=== PATIENT | female | born 1945 | race Caucasian/White ===

== ENCOUNTER 2017-07-21 13:48 | Emergency (ER) | payer MEDICARE, BC ==
[2017-07-21] MEDS ORDERED: Acetaminophen/oxyCODONE 325-5 MG Tab PO ONE (14:37)
--- NOTE | 2017-07-21 16:34 | CR ---
Right elbow: 4 views of the right elbow were obtained. Elevated fat pads are seen compatible with joint effusion. There is slight cortical irregularity involving the lateral epicondyle suspicious nondisplaced fracture which may extend into the intercondylar notch of the distal humerus. osteopenic. No additional bony abnormality is seen. Impression: 1. Possible nondisplaced fracture involving the lateral epicondyle extending into the intercondylar notch of the distal humerus. Follow-up exam would confirm in 10 to 14 days. 2. Joint effusion. Diagnostic code #3
--- NOTE | 2017-07-21 16:37 | CR ---
Right wrist: 4 views of the right wrist were obtained. No fracture, dislocation or other bony abnormality is seen. Impression: 1. No abnormality is seen on right wrist exam. Diagnostic code #1
--- NOTE | 2017-07-21 16:37 | CR ---
Left hand: 4 views of the left hand were obtained. Comparison: No previous study. Mild joint space narrowing is scattered within the DIP and PIP joints. Findings most severe within the fourth finger. Bony structures are osteopenic. No acute fracture, dislocation or other bony abnormality is seen. Impression: 1. Mild degenerative change. 2. Nothing acute is appreciated on left hand study. Diagnostic code #2
--- NOTE | 2017-07-21 16:53 | EDM.PDOC ---
ED HPI GENERAL MEDICAL PROBLEM - General Chief Complaint: Upper Extremity Injury/Pain Stated Complaint: RIGHT ARM INJURY Time Seen by Provider: 07/21/17 14:25 Source of Information: Reports: Patient History Limitations: Reports: No Limitations - History of Present Illness INITIAL COMMENTS - FREE TEXT/NARRATIVE: 71-year-old female presents for evaluation and treatment of an injury to the right arm. Patient reports that she slipped on some ice. This occurred prior to arrival in the ER. She believes that she fell on her arm. Not stretch out her hand. She is currently complaining of pain greatest to the right elbow with radiation into the right forearm. No numbness or tingling in the arm. Reports decreased range of motion to the arm. Patient denies any head trauma. Patient is also complaining of pain to the left hand thumb and first finger. Patient is visiting [place] from [place] for the next month. Location: Reports: Upper Extremity, Right Right Arm Pain Score (Numeric/FACES): 9 - Related Data Allergies Allergy/AdvReac Type Severity Reaction Status Date / Time No Known Allergies Allergy Verified 07/21/17 13:54 Home Meds: Home Meds Benazepril [Lotensin] 5 mg PO DAILY 07/21/17 [History] Bisoprolol Fumarate/HCTZ [Ziac 10-6.25 MG] 1 tab PO DAILY 07/21/17 [History] Simvastatin 40 mg PO DAILY 07/21/17 [History] amLODIPine Besylate [Amlodipine Besylate] 5 mg PO DAILY 07/21/17 [History] Past Medical History HEENT History: Reports: Impaired Vision Cardiovascular History: Reports: High Cholesterol [employer] History: Reports: Other (See Below) Other OB/BYN History: cancer Oncologic (Cancer) History: Reports: Uterine - Past Surgical History HEENT Surgical History: Reports: Tonsillectomy Social & Family History - Family History Family Medical History: Noncontributory - Tobacco Use Smoking Status *Q: Never Smoker - Caffeine Use Caffeine Use: Reports: Tea - Recreational Drug Use Recreational Drug Use: No Review of Systems - Review of Systems Review Of Systems: See Below Musculoskeletal: Reports: Arm Pain (right arm), Hand Pain (left). Denies: Shoulder Pain Neurological: Denies: Headache, Syncope ED EXAM, GENERAL - Physical Exam Exam: See Below Exam Limited By: No Limitations General Appearance: Alert, WD/WN, Mild Distress Eye Exam: Bilateral Eye: Normal Inspection Respiratory/Chest: No Respiratory Distress, Lungs Clear, Normal Breath Sounds Cardiovascular: Normal Peripheral Pulses, Regular Rate, Rhythm, No Murmur Peripheral Pulses: 2+: Radial (L), Radial (R) Extremities: Normal Inspection (no obvious deformity to the right arm), Joint Swelling (left hand 1st metacarpal), Limited Range of Motion (right elbow, unable to supinate, pronate, felx or extend due to pain), Other (minor discomfort to the left distal humerus with palpation; no snuff box tenderness left or right) Neurological: Alert, Oriented, Normal Cognition Psychiatric: Normal Affect, Normal Mood Skin Exam: Warm, Dry, Normal Color, Ecchymosis (left hand first metacarpal) Course - Vital Signs Last Recorded V/S: Last Vital Signs Temp 36.2 C 07/21/17 13:59 Pulse 72 07/21/17 13:59 Resp 18 07/21/17 13:59 BP 186/85 H 07/21/17 13:59 Pulse Ox 98 07/21/17 13:59 - Orders/Labs/Meds Meds: Medications Discontinued Medications Generic Name Dose Route Start Last Admin Trade Name Freq PRN Reason Stop Dose Admin Oxycodone/Acetaminophen 2 tab 07/21/17 14:37 07/21/17 15:11 Percocet 325-5 Mg PO 07/21/17 14:38 2 tab ONETIME ONE Administration - Radiology Interpretation Free Text/Narrative:: Left hand: 4 views of the left hand were obtained. Comparison: No previous study. Mild joint space narrowing is scattered within the DIP and PIP joints. Findings most severe within the fourth finger. Bony structures are osteopenic. No acute fracture, dislocation or other bony abnormality is seen. Impression: 1. Mild degenerative change. 2. Nothing acute is appreciated on left hand study. Right wrist: 4 views of the right wrist were obtained. No fracture, dislocation or other bony abnormality is seen. Impression: 1. No abnormality is seen on right wrist exam. Right elbow: 4 views of the right elbow were obtained. Elevated fat pads are seen compatible with joint effusion. There is slight cortical irregularity involving the lateral epicondyle suspicious nondisplaced fracture which may extend into the intercondylar notch of the distal humerus.\. Bony structures are osteopenic. No additional bony abnormality is seen. Impression: 1. Possible nondisplaced fracture involving the lateral epicondyle extending into the intercondylar notch of the distal humerus. Follow-up exam would confirm in 10 to 14 days. 2. Joint effusion. - Re-Assessments/Exams Free Text/Narrative Re-Assessment/Exam: 07/21/17 16:47 I reviewed the x-ray results with the patient. Will put her in a sling and have her follow-up with orthopedics in 1-2 weeks. Discharge instructions as documented. Departure - Departure Time of Disposition: 16:47 Disposition: Home, Self-Care 01 Condition: Fair Clinical Impression: Fracture of lateral condyle of elbow - Discharge Information Referrals: PCP,Not In Area [Primary Care Provider] - Marcus Haider MD [Physician] - Forms: ED Department Discharge Additional Instructions: Prescription for [place] 5-325 one to 2 tabs every 4-6 hours as needed for pain # 20 given through [facility]. you were given medication the other can affect your ability to drive and operate machinery. Do not drive or operate machinery within 12 hours of taking prescription narcotic pain medication. sling on at all times. Ice the elbow frequently to reduce swelling and for pain relief. [place] one to 2 tabs every 4-6 hours as needed for severe pain. Do not drive or operate machinery within 12 hours taking [place]. [place] can be habit-forming, I recommend you take as few these as needed to control your pain. He may take [id number] ibuprofen in addition to the [place] for additional pain relief. Follow-up with orthopedics in 1-2 weeks. He will likely need another x-ray to follow-up within [address] Huang at [facility]. Call Sunday morning to schedule an appointment with him. Please let them though anywhere in the ER on Sunday and you have a questionable nondisplaced fracture involving the lateral epicondyle of the right humerus. Follow-up was recommended within 1-2 weeks. Please return to the ER if your symptoms change or worsen.
== END 2017-07-21 17:15 | disposition home or self-care (01) ==
LOC: JD.ED 13:48
DX: S42.451A Displaced fracture of lateral condyle of right humerus, initial encounter for closed fracture (principal); Z79.899 Other long term (current) drug therapy; E78.00 Pure hypercholesterolemia, unspecified; W00.0XXA Fall on same level due to ice and snow, initial encounter
CPT/HCPCS: 73080; 73110; 73130; 99283; A9270